=== PATIENT | female | born 1950 | race Two or more races ===

== ENCOUNTER 2021-08-06 12:45 | Inpatient (IN) | payer OTHER ==
[~2021-08-06] VITALS: Ht 154.9 cm; Wt 63.5 kg
[2021-08-06] MEDS ORDERED: LOSARTAN PO (14:48)
[2021-08-06] MEDS ORDERED: GLIMEPIRIDE4 M1 PO (14:48)
[2021-08-06] MEDS ORDERED: METFORMIN HCL500 M3 PO (14:49)
[2021-08-06] MEDS ORDERED: ROSUVASTA PO (14:49)
[2021-08-06] MEDS ORDERED: METFORM PO (14:49)
[2021-08-06] MEDS ORDERED: ACIPHEX20 MG PO (14:50)
[2021-08-07] MEDS ORDERED: LOSARTAN POTAS100 MG (13:21)
[2021-08-07] MEDS ORDERED: ROSUVASTATIN CA20 MG (13:21)
[2021-08-07] MEDS ORDERED: MAXIMUM D3325 MCG (13:21)
[2021-08-14] MEDS ORDERED: PERCOCET 5-3251 EACH PO (15:14)
== END 2021-08-14 20:19 | disposition home or self-care (01) | DRG 734 ==
LOC: O/R 08-07 06:10 → OB/GYN 08-07 06:10 → SURH 08-07 12:45 → OB/GYN 08-07 17:38
PROVIDERS: Surgery; ADMIT Obstetrics & Gynecology Gynecologic Oncology; ATTEND Obstetrics & Gynecology Gynecologic Oncology
PROC: 0UT00ZZ Resection of Right Ovary, Open Approach (ICD-10-PCS; 2021-08-07)
PROC: 0DBW0ZZ Excision of Peritoneum, Open Approach (ICD-10-PCS; 2021-08-07)
PROC: 0DTU0ZZ Resection of Omentum, Open Approach (ICD-10-PCS; 2021-08-07)
PROC: 0DTH0ZZ Resection of Cecum, Open Approach (ICD-10-PCS; 2021-08-07)
PROC: 0DT80ZZ Resection of Small Intestine, Open Approach (ICD-10-PCS; 2021-08-07)
PROC: 07TD0ZZ Resection of Aortic Lymphatic, Open Approach (ICD-10-PCS; principal; 2021-08-07 17:30)
PROC: 0UT50ZZ Resection of Right Fallopian Tube, Open Approach (ICD-10-PCS; 2021-08-07 17:30)
DX: C56.3 Malignant neoplasm of bilateral ovaries (principal); C78.4 Secondary malignant neoplasm of small intestine; Z20.822 Contact with and (suspected) exposure to COVID-19